=== PATIENT | female | born 1950 | race Caucasian/White ===

== ENCOUNTER 2017-07-12 21:16 | Inpatient (IN) | payer OTHER ==
[~2017-07-12] VITALS: Ht 165.1 cm; Wt 154.5 kg
[~2017-07-12 21:16] MED LIST: ASPI-496 PO; ATOR40TA78 PO; BUDE10.22 INH; CEFD300C37 PO; CEPH-376 PO; CHOL500050 PO; DOXY100T PO; FURO-93 PO; GABA300C10 PO; HYDR12.58 PO; HYDR25TA6 PO; IPRA3AMP NPPB; LISI-170 PO; LORA10TA62 PO; MAGN64TA9 PO; METF500T4 PO; METO25TA35 PO; MULT-224 PO; OXYC10TA6 PO; PARO20TA4 PO; POTA20TA6 PO; PRED5TAB PO; SULF1TAB24 PO; TICA90TA PO; TIOT18CA INH
[2017-07-12] MEDS ORDERED: ALBUTEROL/IPRATROPIUM 2.5MG/0.5MG, 3 ML ONE (21:27)
[2017-07-12] MEDS ORDERED: SODIUM CHLORIDE FLUSH 10ML SYR IVF ONE (21:30)
[2017-07-12] MEDS ORDERED: methylPREDNISolone SOD SUCC 125 MG/2 ML IVP ONE (21:30)
[2017-07-12] MEDS ORDERED: ALBUTEROL/IPRATROPIUM 2.5MG/0.5MG, 3 ML NPPB ONE (21:30)
[2017-07-12] MEDS ORDERED: methylPREDNISolone SOD SUCC 125 MG/2 ML ONE (21:39)
[2017-07-12 22:16] LABS: BASOPHILS # (AUTO) 0.03 x10^3/uL (0-0.1); BASOPHILS % (AUTO) 0 % (0-1); EOSINOPHILS # (AUTO) 0.53 x10^3/uL (0-0.4); EOSINOPHILS % (AUTO) 5 % (1-7); LYMPHOCYTES % (AUTO) 21 % (22-44); MD NO; MEAN CORPUSCULAR HEMOGLOBIN 31.1 pg (27.0-34.8); MEAN CORPUSCULAR HGB CONC 32.7 g/dL (32.4-35.8); MEAN CORPUSCULAR VOLUME 94.9 fL (80-100); MONOCYTES # (AUTO) 0.51 x10^3/uL (0.2-0.8); MONOCYTES % (AUTO) 5 % (2-9); NEUTROPHILS # (AUTO) 7.38 x10^3/uL (1.8-6.8); NEUTROPHILS % (AUTO) 69 % (42-75); PLATELET COUNT 422 x10^3/uL (130-400); RED BLOOD COUNT 3.28 x10^6/uL (3.82-5.3); RED CELL DISTRIBUTION WIDTH 17.7 % (9.6-15.2)
[2017-07-12 22:26] LABS: ALANINE AMINOTRANSFERASE 15 U/L (12-78); ALBUMIN 3.3 g/dL (3.4-5.0); ANION GAP 9 mmol/L (5-15); CALCIUM 8.9 mg/dL (8.5-10.1); CHLORIDE 103 mmol/L (98-107); CREATININE 1.34 mg/dL (0.55-1.02)
[2017-07-12 22:30] LABS: ALKALINE PHOSPHATASE 81 U/L (45-117); BILIRUBIN,TOTAL 0.3 mg/dL (0.2-1.0); TOTAL PROTEIN 8.7 g/dL (6.4-8.2); TROPONIN I < 0.015 ng/mL (0.000-0.045)
[2017-07-12] MEDS ORDERED: LISI-167 PO (23:17)
[2017-07-12] MEDS ORDERED: BISACODYL 10 MG SUPP PR PRN (23:30)
[2017-07-12] MEDS ORDERED: ALBUTEROL/IPRATROPIUM 2.5MG/0.5MG, 3 ML NPPB PRN (23:30)
[2017-07-12] MEDS ORDERED: ACETAMINOPHEN 325 MG TABLET PO PRN (23:30)
[2017-07-12] MEDS ORDERED: ONDANSETRON 2MG/ML, 2ML IVPush PRN (23:30)
[2017-07-12] MEDS: INSULIN LISPRO 100 UNITS/ML, PEN SQ-INSULIN SCH (23:30)
[2017-07-12] MEDS ORDERED: hydrALAzine 20 MG/ML, 1ML IVPush PRN (23:30)
[2017-07-12] MEDS: ASPIRIN 81 MG TABLET EC PO SCH (23:30)
[2017-07-12] MEDS ORDERED: POLYETHYLENE GLYCOL 17 GM PACKET PO PRN (23:30)
[2017-07-12 23:54] LABS: FREE T4 (FREE THYROXINE) 1.11 ng/dL (0.76-1.46); THYROID STIMULATING HORMONE 2.19 mIU/L (0.358-3.740)
[2017-07-12 23:55] LABS: HEMOGLOBIN A1C 6.3 % (4.2-6.3)
[2017-07-13] MEDS ORDERED: MAGNESIUM SULFATE PMX 2GM/50ML 50 ML IV ONE
[2017-07-13] MEDS ORDERED: FUROSEMIDE 20 MG/2 ML IV ONE
[2017-07-13] MEDS: LORATADINE 10 MG TABLET PO SCH ×2 (00:30→10:07)
[2017-07-13 00:59] VITALS: BP 145/76
[2017-07-13] MEDS: GUAIFENESIN ER 600 MG TABLET PO SCH ×2 (01:47→17:02)
[2017-07-13] MEDS: METOPROLOL TARTRATE 25 MG TABLET PO SCH ×3 (01:47→20:44)
[2017-07-13] MEDS: GABAPENTIN 300 MG CAPSULE PO SCH ×2 (01:48→20:43)
[2017-07-13] MEDS: ATORVASTATIN 40 MG TABLET PO SCH ×2 (01:48→20:43)
[2017-07-13] MEDS: PAROXETINE 20 MG TABLET PO SCH ×2 (01:48→20:43)
[2017-07-13] MEDS: HEPARIN 5,000 UNITS/ML, 1ML SQ SCH ×3 (01:49→17:10)
[2017-07-13 03:12] LABS: MICROSCOPIC AUTO
[2017-07-13 03:13] LABS: CULTURE INDICATED? YES
[2017-07-13 05:03] LABS: BASOPHILS % (AUTO) 0 % (0-1); EOSINOPHILS # (AUTO) 0.04 x10^3/uL (0-0.4); EOSINOPHILS % (AUTO) 0 % (1-7); LYMPHOCYTES # (AUTO) 0.95 x10^3/uL (1-3.4); LYMPHOCYTES % (AUTO) 9 % (22-44); MD NO; MEAN CORPUSCULAR HEMOGLOBIN 31.8 pg (27.0-34.8); MEAN CORPUSCULAR HGB CONC 33.4 g/dL (32.4-35.8); MEAN CORPUSCULAR VOLUME 95.1 fL (80-100); MEAN PLATELET VOLUME 7.1 fL (7.4-10.4); MONOCYTES # (AUTO) 0.03 x10^3/uL (0.2-0.8); MONOCYTES % (AUTO) 0 % (2-9); NEUTROPHILS # (AUTO) 9.66 x10^3/uL (1.8-6.8); NEUTROPHILS % (AUTO) 90 % (42-75); PLATELET COUNT 403 x10^3/uL (130-400); RED BLOOD COUNT 3.26 x10^6/uL (3.82-5.3)
[2017-07-13 05:17] LABS: ALBUMIN 3.2 g/dL (3.4-5.0); ANION GAP 9 mmol/L (5-15); CHLORIDE 103 mmol/L (98-107)
[2017-07-13 05:22] LABS: ALANINE AMINOTRANSFERASE 16 U/L (12-78); ALKALINE PHOSPHATASE 84 U/L (45-117); BILIRUBIN,TOTAL 0.3 mg/dL (0.2-1.0); CHOL/HDL RATIO 2.1; CHOLESTEROL, TOTAL 115 mg/dL (140-239); CREATININE 1.34 mg/dL (0.55-1.02); HDL CHOL % 47 % (28-40); HDL CHOLESTEROL (DIRECT) 54 mg/dL (40-60); LDL CHOLESTEROL,CALCULATED 48 mg/dL (54-169); LDL/HDL RATIO 0.9 (0.5-3.0); TOTAL PROTEIN 8.8 g/dL (6.4-8.2); TRIGLYCERIDES 63 mg/dL (50-200); TROPONIN I < 0.015 ng/mL (0.000-0.045); VLDL CHOLESTEROL 13 mg/dL (0-25)
[2017-07-13] MEDS: ALBUTEROL/IPRATROPIUM 2.5MG/0.5MG, 3 ML NPPB SCH ×4 (06:48→20:02)
[2017-07-13] MEDS: INSULIN LISPRO 100 UNITS/ML, PEN SQ-INSULIN SCH ×4 (07:00→20:55)
[2017-07-13] MEDS ORDERED: REGADENOSON 0.4 MG/5 ML SYRINGE ONE (07:41)
[2017-07-13 07:54] VITALS: BP 163/84
[2017-07-13] MEDS: SENNA/DOCUSATE TABLET PO SCH (07:54)
[2017-07-13] MEDS: TEMPLATE NON-FORMULARY MED. (Tiotropium Bromide** (Spiriva**) 18 MCG) INH SCH ×2 (09:00→12:33)
[2017-07-13] MEDS: TEMPLATE NON-FORMULARY MED. (Budesonide/Formoterol Fumarate (Symbicort 80-4.5 Mcg Inhaler) INH SCH ×2 (09:00→12:32)
[2017-07-13 10:05] VITALS: BP 164/91
[2017-07-13] MEDS: CLOPIDOGREL 75 MG TABLET PO SCH (10:07)
[2017-07-13] MEDS: FUROSEMIDE 20 MG/2 ML IV SCH (10:07)
[2017-07-13] MEDS: LISINOPRIL 10 MG TABLET PO SCH (10:07)
[2017-07-13 10:09] LABS: TROPONIN I < 0.015 ng/mL (0.000-0.045)
[2017-07-13 12:30] VITALS: BP 151/84
[2017-07-13 13:01] VITALS: BP 147/81
[2017-07-13 20:38] VITALS: BP 145/74
[2017-07-13] MEDS: ASPIRIN 81 MG TABLET EC PO SCH (20:43)
[2017-07-14 01:45] VITALS: BP 156/64
[2017-07-14] MEDS: HEPARIN 5,000 UNITS/ML, 1ML SQ SCH ×3 (02:02→17:16)
[2017-07-14] MEDS: GUAIFENESIN ER 600 MG TABLET PO SCH ×2 (06:12→17:16)
[2017-07-14] MEDS: INSULIN LISPRO 100 UNITS/ML, PEN SQ-INSULIN SCH ×4 (07:00→20:45)
[2017-07-14] MEDS: ALBUTEROL/IPRATROPIUM 2.5MG/0.5MG, 3 ML NPPB SCH ×4 (07:00→20:15)
[2017-07-14 07:17] VITALS: BP 168/73
[2017-07-14] MEDS: SENNA/DOCUSATE TABLET PO SCH (09:00)
[2017-07-14] MEDS: FUROSEMIDE 20 MG/2 ML IV SCH (09:35)
[2017-07-14] MEDS: CLOPIDOGREL 75 MG TABLET PO SCH (09:37)
[2017-07-14] MEDS: METOPROLOL TARTRATE 25 MG TABLET PO SCH ×2 (09:38→20:42)
[2017-07-14] MEDS: LORATADINE 10 MG TABLET PO SCH (09:39)
[2017-07-14] MEDS: LISINOPRIL 10 MG TABLET PO SCH (09:39)
[2017-07-14] MEDS: TEMPLATE NON-FORMULARY MED. (Tiotropium Bromide** (Spiriva**) 18 MCG) INH SCH (09:44)
[2017-07-14] MEDS: TEMPLATE NON-FORMULARY MED. (Budesonide/Formoterol Fumarate (Symbicort 80-4.5 Mcg Inhaler) INH SCH (09:44)
[2017-07-14 13:22] VITALS: BP 108/56
[2017-07-14 19:05] VITALS: BP 113/67
[2017-07-14] MEDS: ATORVASTATIN 40 MG TABLET PO SCH (20:41)
[2017-07-14] MEDS: ASPIRIN 81 MG TABLET EC PO SCH (20:42)
[2017-07-14] MEDS: PAROXETINE 20 MG TABLET PO SCH (20:42)
[2017-07-15] MEDS: HEPARIN 5,000 UNITS/ML, 1ML SQ SCH ×2 (01:43→09:23)
[2017-07-15 02:23] VITALS: BP 163/69
[2017-07-15] MEDS: GUAIFENESIN ER 600 MG TABLET PO SCH (06:26)
[2017-07-15] MEDS: INSULIN LISPRO 100 UNITS/ML, PEN SQ-INSULIN SCH ×2 (07:00→11:00)
[2017-07-15 07:43] VITALS: BP 139/79
[2017-07-15] MEDS: ALBUTEROL/IPRATROPIUM 2.5MG/0.5MG, 3 ML NPPB SCH ×2 (08:00→09:44)
[2017-07-15] MEDS: METOPROLOL TARTRATE 25 MG TABLET PO SCH (09:00)
[2017-07-15] MEDS: SENNA/DOCUSATE TABLET PO SCH (09:00)
[2017-07-15] MEDS: LORATADINE 10 MG TABLET PO SCH (09:20)
[2017-07-15] MEDS: FUROSEMIDE 20 MG/2 ML IV SCH (09:20)
[2017-07-15] MEDS: LISINOPRIL 10 MG TABLET PO SCH (09:21)
[2017-07-15] MEDS: CLOPIDOGREL 75 MG TABLET PO SCH (09:21)
[2017-07-15] MEDS: TEMPLATE NON-FORMULARY MED. (Tiotropium Bromide** (Spiriva**) 18 MCG) INH SCH (09:33)
[2017-07-15] MEDS: TEMPLATE NON-FORMULARY MED. (Budesonide/Formoterol Fumarate (Symbicort 80-4.5 Mcg Inhaler) INH SCH (09:33)
[2017-07-15 12:48] VITALS: BP 153/72
[2017-07-15] MEDS ORDERED: METOPROLOL TARTRATE 25 MG TABLET PO SCH (21:00)
== END 2017-07-15 16:00 | disposition home or self-care (01) | DRG 291 ==
LOC: ED 22:51 → EDIP 22:57 → 4WST 23:56 → 5SO 07-13 01:08 → DCLOUNGE 07-15 15:45
PROVIDERS: ADMIT Internal Medicine; ATTEND Internal Medicine
PROC: 5A09357 Assistance with Respiratory Ventilation, Less than 24 Consecutive Hours, Continuous Positive Airway Pressure (ICD-10-PCS; principal; 2017-07-14)
DX: I13.0 Hypertensive heart and chronic kidney disease with heart failure and stage 1 through stage 4 chronic kidney disease, or unspecified chronic kidney disease (principal); J96.21 Acute and chronic respiratory failure with hypoxia; E44.0 Moderate protein-calorie malnutrition; E11.22 Type 2 diabetes mellitus with diabetic chronic kidney disease; F17.210 Nicotine dependence, cigarettes, uncomplicated; D50.9 Iron deficiency anemia, unspecified; I50.33 Acute on chronic diastolic (congestive) heart failure; E87.2 Acidosis; Z68.43 Body mass index [BMI] 50.0-59.9, adult; J44.1 Chronic obstructive pulmonary disease with (acute) exacerbation; J98.11 Atelectasis; E66.01 Morbid (severe) obesity due to excess calories; E78.5 Hyperlipidemia, unspecified; I87.2 Venous insufficiency (chronic) (peripheral); L30.9 Dermatitis, unspecified; N18.3 Chronic kidney disease, stage 3 (moderate); G47.33 Obstructive sleep apnea (adult) (pediatric); I25.10 Atherosclerotic heart disease of native coronary artery without angina pectoris; J40 Bronchitis, not specified as acute or chronic; I25.2 Old myocardial infarction; Z95.5 Presence of coronary angioplasty implant and graft; Z90.49 Acquired absence of other specified parts of digestive tract
CPT/HCPCS: 36415; 36600; 71045; 71046; 78452; 80053; 80061; 81001; 82803; 82962; 83036; 83605; 83735; 84145; 84439; 84443; 84484; 85025; 87040; 87086; 87205; 93005; 93017; 94640; 96374; J1644; J2785; J7620; A9502; C9898; J1815; J1940; J2930; J3475

== ENCOUNTER → 2017-07-16 | Outpatient (CLI) | payer OTHER ==
[~2017-07-16] MED LIST changes: +LISI-167 PO; -MAGN64TA9 PO; +MAGNESIUM DR64 MG PO
== END | disposition home or self-care (01) ==
LOC: WOUND 08:00
PROVIDERS: ATTEND Podiatrist Foot & Ankle Surgery
DX: I87.331 Chronic venous hypertension (idiopathic) with ulcer and inflammation of right lower extremity (principal); E11.621 Type 2 diabetes mellitus with foot ulcer; L97.511 Non-pressure chronic ulcer of other part of right foot limited to breakdown of skin; L97.521 Non-pressure chronic ulcer of other part of left foot limited to breakdown of skin; E11.40 Type 2 diabetes mellitus with diabetic neuropathy, unspecified; I25.2 Old myocardial infarction; J44.9 Chronic obstructive pulmonary disease, unspecified; F32.9 Major depressive disorder, single episode, unspecified; Z87.891 Personal history of nicotine dependence; Z90.49 Acquired absence of other specified parts of digestive tract; Z89.422 Acquired absence of other left toe(s)
CPT/HCPCS: 29581; 97597; G0463; WOU0463

== ENCOUNTER → 2017-07-23 | Outpatient (CLI) | payer OTHER | END | disposition home or self-care (01) | LOC: WOUND 09:18 | PROVIDERS: ATTEND Podiatrist Foot & Ankle Surgery | DX: E11.621 Type 2 diabetes mellitus with foot ulcer (principal); L97.511 Non-pressure chronic ulcer of other part of right foot limited to breakdown of skin; E11.40 Type 2 diabetes mellitus with diabetic neuropathy, unspecified; J44.9 Chronic obstructive pulmonary disease, unspecified; F32.9 Major depressive disorder, single episode, unspecified; I25.2 Old myocardial infarction; I25.10 Atherosclerotic heart disease of native coronary artery without angina pectoris; E11.22 Type 2 diabetes mellitus with diabetic chronic kidney disease; I13.0 Hypertensive heart and chronic kidney disease with heart failure and stage 1 through stage 4 chronic kidney disease, or unspecified chronic kidney disease; N18.3 Chronic kidney disease, stage 3 (moderate); I50.33 Acute on chronic diastolic (congestive) heart failure; J44.1 Chronic obstructive pulmonary disease with (acute) exacerbation; E78.5 Hyperlipidemia, unspecified; E66.01 Morbid (severe) obesity due to excess calories; I87.2 Venous insufficiency (chronic) (peripheral); F17.210 Nicotine dependence, cigarettes, uncomplicated; Z89.422 Acquired absence of other left toe(s); Z90.49 Acquired absence of other specified parts of digestive tract; Z68.43 Body mass index [BMI] 50.0-59.9, adult | CPT/HCPCS: 29581; 97597 ==

== ENCOUNTER 2017-08-15 20:37 | Inpatient (IN) | payer OTHER ==
[~2017-08-15] VITALS: Ht 165.1 cm; Wt 153.9 kg
[2017-08-15] MEDS ORDERED: ALBUTEROL SULFATE 2.5 MG/3 ML ONE (21:23)
[2017-08-15] MEDS ORDERED: SODIUM CHLORIDE FLUSH 10ML SYR IVF ONE (21:30)
[2017-08-15 21:52] LABS: BASOPHILS # (AUTO) 0.05 x10^3/uL (0-0.1); BASOPHILS % (AUTO) 1 % (0-1); EOSINOPHILS # (AUTO) 0.55 x10^3/uL (0-0.4); EOSINOPHILS % (AUTO) 6 % (1-7); LYMPHOCYTES # (AUTO) 1.99 x10^3/uL (1-3.4); LYMPHOCYTES % (AUTO) 21 % (22-44); MD NO; MEAN CORPUSCULAR HEMOGLOBIN 31.1 pg (27.0-34.8); MEAN CORPUSCULAR HGB CONC 32.8 g/dL (32.4-35.8); MEAN PLATELET VOLUME 7.1 fL (7.4-10.4); MONOCYTES # (AUTO) 0.42 x10^3/uL (0.2-0.8); MONOCYTES % (AUTO) 4 % (2-9); NEUTROPHILS # (AUTO) 6.58 x10^3/uL (1.8-6.8); NEUTROPHILS % (AUTO) 69 % (42-75); PLATELET COUNT 392 x10^3/uL (130-400); RED BLOOD COUNT 3.25 x10^6/uL (3.82-5.3); RED CELL DISTRIBUTION WIDTH 16.2 % (9.6-15.2)
[2017-08-15 22:04] LABS: ALANINE AMINOTRANSFERASE 17 U/L (12-78); ANION GAP 6 mmol/L (5-15); CALCIUM 9.1 mg/dL (8.5-10.1); CHLORIDE 105 mmol/L (98-107); CREATININE 1.37 mg/dL (0.55-1.02)
[2017-08-15 22:09] LABS: ALKALINE PHOSPHATASE 79 U/L (45-117); TOTAL PROTEIN 8.1 g/dL (6.4-8.2); TROPONIN I < 0.015 ng/mL (0.000-0.045)
[2017-08-15 22:10] LABS: BILIRUBIN,TOTAL 0.2 mg/dL (0.2-1.0)
[2017-08-15] MEDS ORDERED: POLYETHYLENE GLYCOL 17 GM PACKET PO PRN (23:30)
[2017-08-15] MEDS ORDERED: PROMETHAZINE 25 MG/ML, 1ML IM PRN (23:30)
[2017-08-15] MEDS ORDERED: morphine SULFATE 10 MG/ML, 1ML IVPush PRN (23:30)
[2017-08-15] MEDS ORDERED: ONDANSETRON ODT 4 MG PO PRN (23:30)
[2017-08-15] MEDS ORDERED: SODIUM CHLORIDE FLUSH 10ML SYR IVF PRN (23:30)
[2017-08-15] MEDS ORDERED: OXYcodone IR 5MG TABLET PO PRN (23:30)
[2017-08-15] MEDS ORDERED: ONDANSETRON 2MG/ML, 2ML IVPush PRN (23:30)
[2017-08-15] MEDS ORDERED: hydrALAzine 20 MG/ML, 1ML IVPush PRN (23:30)
[2017-08-15] MEDS ORDERED: DOCUSATE 100 MG CAPSULE PO PRN (23:30)
[2017-08-15] MEDS ORDERED: ACETAMINOPHEN 325 MG TABLET PO PRN (23:30)
[2017-08-15] MEDS ORDERED: BISACODYL 10 MG SUPP PR PRN (23:30)
[2017-08-15 23:59] LABS: HEMOGLOBIN A1C 6.4 % (4.2-6.3)
[2017-08-16] MEDS ORDERED: ALBUTEROL/IPRATROPIUM 2.5MG/0.5MG, 3 ML NPPB PRN
[2017-08-16 00:02] LABS: FREE T4 (FREE THYROXINE) 1.17 ng/dL (0.76-1.46); THYROID STIMULATING HORMONE 1.26 mIU/L (0.358-3.740)
[2017-08-16] MEDS: HEPARIN 5,000 UNITS/ML, 1ML SQ SCH ×4 (01:15→21:17)
[2017-08-16] MEDS: methylPREDNISolone SOD SUCC 125 MG/2 ML IVPush SCH ×4 (01:15→19:37)
[2017-08-16] MEDS: NICOTINE 14MG/24 HR PATCH.TD24 TD SCH (01:15)
[2017-08-16] MEDS: GABAPENTIN 300 MG CAPSULE PO SCH ×2 (01:16→21:15)
[2017-08-16] MEDS: ASPIRIN 81 MG TABLET EC PO SCH ×2 (01:16→21:15)
[2017-08-16] MEDS: DOXYCYCLINE 100MG TABLET PO SCH ×3 (01:16→21:16)
[2017-08-16] MEDS: ATORVASTATIN 40 MG TABLET PO SCH ×2 (01:16→21:15)
[2017-08-16] MEDS: PAROXETINE 20 MG TABLET PO SCH ×2 (01:16→21:16)
[2017-08-16 02:00] VITALS: BP 147/75
[2017-08-16 02:32] VITALS: BP 147/75
[2017-08-16 03:43] VITALS: BP 164/77
[2017-08-16] MEDS ORDERED: CLOP75TA PO (04:26)
[2017-08-16] MEDS ORDERED: METO25TA4 PO (04:26)
[2017-08-16 05:25] LABS: BASOPHILS # (AUTO) 0.01 x10^3/uL (0-0.1); BASOPHILS % (AUTO) 0 % (0-1); EOSINOPHILS # (AUTO) 0.11 x10^3/uL (0-0.4); EOSINOPHILS % (AUTO) 1 % (1-7); LYMPHOCYTES # (AUTO) 0.87 x10^3/uL (1-3.4); LYMPHOCYTES % (AUTO) 9 % (22-44); MD NO; MEAN CORPUSCULAR HEMOGLOBIN 31.4 pg (27.0-34.8); MEAN PLATELET VOLUME 6.8 fL (7.4-10.4); MONOCYTES # (AUTO) 0.05 x10^3/uL (0.2-0.8); MONOCYTES % (AUTO) 1 % (2-9); NEUTROPHILS # (AUTO) 9.04 x10^3/uL (1.8-6.8); NEUTROPHILS % (AUTO) 90 % (42-75); PLATELET COUNT 396 x10^3/uL (130-400); RED BLOOD COUNT 3.37 x10^6/uL (3.82-5.3); RED CELL DISTRIBUTION WIDTH 16.2 % (9.6-15.2)
[2017-08-16 05:39] LABS: CHLORIDE 106 mmol/L (98-107)
[2017-08-16 05:47] LABS: ALANINE AMINOTRANSFERASE 17 U/L (12-78); ALKALINE PHOSPHATASE 83 U/L (45-117); ANION GAP 5 mmol/L (5-15); BILIRUBIN,TOTAL 0.2 mg/dL (0.2-1.0); CALCIUM 8.8 mg/dL (8.5-10.1); CREATININE 1.24 mg/dL (0.55-1.02); TOTAL PROTEIN 8.3 g/dL (6.4-8.2)
[2017-08-16] MEDS: ALBUTEROL/IPRATROPIUM 2.5MG/0.5MG, 3 ML NPPB SCH ×4 (07:00→20:35)
[2017-08-16] MEDS: INSULIN LISPRO 100 UNITS/ML, PEN SQ-INSULIN SCH ×4 (07:00→21:16)
[2017-08-16 07:03] VITALS: BP 155/75
[2017-08-16] MEDS: FLUTICASONE/VILANTEROL 100-25MCG/INH INH SCH (09:00)
[2017-08-16] MEDS: LOSARTAN 50MG TABLET PO SCH (09:00)
[2017-08-16] MEDS: LORATADINE 10 MG TABLET PO SCH (09:00)
[2017-08-16] MEDS ORDERED: IPRATROPIUM 0.5 MG/2.5 ML INHA HHN SCH (09:00)
[2017-08-16] MEDS: NYSTATIN TOPICAL POWDER 15GM TP SCH ×2 (12:00→21:17)
[2017-08-16 13:43] VITALS: BP 139/84
[2017-08-16 14:15] LABS: % IRON SATURATION 10 % (20-55); IRON LEVEL 28 mcg/dL (50-170); TOTAL IRON BINDING CAPACITY 294 mcg/dL (250-450)
[2017-08-16 16:47] LABS: MICROSCOPIC AUTO
[2017-08-16 16:48] LABS: CULTURE INDICATED? NO
[2017-08-16] MEDS: FERROUS SULFATE 325 MG TABLET PO SCH (16:56)
[2017-08-16 20:08] VITALS: BP 149/73
[2017-08-16] MEDS: HYDROCHLOROTHIAZIDE 12.5 MG CAPSULE PO SCH (21:15)
[2017-08-17] MEDS: methylPREDNISolone SOD SUCC 125 MG/2 ML IVPush SCH ×2 (01:33→06:04)
[2017-08-17] MEDS: NICOTINE 14MG/24 HR PATCH.TD24 TD SCH (01:34)
[2017-08-17 03:19] VITALS: BP 140/75
[2017-08-17 04:38] LABS: BASOPHILS # (AUTO) 0.01 x10^3/uL (0-0.1); BASOPHILS % (AUTO) 0 % (0-1); EOSINOPHILS % (AUTO) 0 % (1-7); LYMPHOCYTES # (AUTO) 1.28 x10^3/uL (1-3.4); LYMPHOCYTES % (AUTO) 12 % (22-44); MD NO; MEAN CORPUSCULAR HEMOGLOBIN 31.5 pg (27.0-34.8); MEAN CORPUSCULAR HGB CONC 33.3 g/dL (32.4-35.8); MEAN CORPUSCULAR VOLUME 94.6 fL (80-100); MONOCYTES # (AUTO) 0.28 x10^3/uL (0.2-0.8); MONOCYTES % (AUTO) 3 % (2-9); NEUTROPHILS # (AUTO) 9.38 x10^3/uL (1.8-6.8); NEUTROPHILS % (AUTO) 86 % (42-75); PLATELET COUNT 365 x10^3/uL (130-400); RED BLOOD COUNT 3.28 x10^6/uL (3.82-5.3); RED CELL DISTRIBUTION WIDTH 15.9 % (9.6-15.2)
[2017-08-17 04:48] LABS: ALBUMIN 2.9 g/dL (3.4-5.0); ANION GAP 6 mmol/L (5-15); CALCIUM 8.9 mg/dL (8.5-10.1); CHLORIDE 103 mmol/L (98-107)
[2017-08-17 04:52] LABS: ALANINE AMINOTRANSFERASE 17 U/L (12-78); ALKALINE PHOSPHATASE 73 U/L (45-117); BILIRUBIN,TOTAL 0.2 mg/dL (0.2-1.0); CREATININE 1.14 mg/dL (0.55-1.02); TOTAL PROTEIN 7.9 g/dL (6.4-8.2)
[2017-08-17] MEDS: HEPARIN 5,000 UNITS/ML, 1ML SQ SCH ×3 (06:04→20:39)
[2017-08-17 08:13] VITALS: BP 178/80
[2017-08-17] MEDS: INSULIN LISPRO 100 UNITS/ML, PEN SQ-INSULIN SCH ×4 (08:15→20:51)
[2017-08-17] MEDS: FLUTICASONE/VILANTEROL 100-25MCG/INH INH SCH (08:15)
[2017-08-17] MEDS: FERROUS SULFATE 325 MG TABLET PO SCH (08:15)
[2017-08-17] MEDS: NYSTATIN TOPICAL POWDER 15GM TP SCH ×2 (08:15→20:39)
[2017-08-17] MEDS: DOXYCYCLINE 100MG TABLET PO SCH (08:15)
[2017-08-17] MEDS: LORATADINE 10 MG TABLET PO SCH (08:15)
[2017-08-17] MEDS: LOSARTAN 50MG TABLET PO SCH (08:15)
[2017-08-17] MEDS: ALBUTEROL/IPRATROPIUM 2.5MG/0.5MG, 3 ML NPPB SCH ×4 (08:40→20:00)
[2017-08-17] MEDS: IRON SUCROSE COMPLEX 100MG/5ML IV SCH (12:05)
[2017-08-17 13:41] VITALS: BP 162/80
[2017-08-17] MEDS: methylPREDNISolone SOD SUCC 40 MG/ML IVPush SCH (17:07)
[2017-08-17 20:00] VITALS: BP 154/65
[2017-08-17] MEDS: ASPIRIN 81 MG TABLET EC PO SCH (20:38)
[2017-08-17] MEDS: ATORVASTATIN 40 MG TABLET PO SCH (20:39)
[2017-08-17] MEDS: HYDROCHLOROTHIAZIDE 12.5 MG CAPSULE PO SCH (20:39)
[2017-08-17] MEDS: PAROXETINE 20 MG TABLET PO SCH (20:39)
[2017-08-17] MEDS: GABAPENTIN 300 MG CAPSULE PO SCH (20:39)
[2017-08-18] MEDS: NICOTINE 14MG/24 HR PATCH.TD24 TD SCH (01:00)
[2017-08-18 01:38] VITALS: BP 184/83
[2017-08-18] MEDS: HEPARIN 5,000 UNITS/ML, 1ML SQ SCH ×2 (05:18→15:13)
[2017-08-18 06:30] VITALS: BP 128/77
[2017-08-18] MEDS: INSULIN LISPRO 100 UNITS/ML, PEN SQ-INSULIN SCH ×3 (07:53→16:52)
[2017-08-18] MEDS: LORATADINE 10 MG TABLET PO SCH (07:54)
[2017-08-18] MEDS: FLUTICASONE/VILANTEROL 100-25MCG/INH INH SCH (07:54)
[2017-08-18] MEDS: IRON SUCROSE COMPLEX 100MG/5ML IV SCH (07:54)
[2017-08-18] MEDS: LOSARTAN 50MG TABLET PO SCH (07:54)
[2017-08-18] MEDS: NYSTATIN TOPICAL POWDER 15GM TP SCH (07:54)
[2017-08-18] MEDS: methylPREDNISolone SOD SUCC 40 MG/ML IVPush SCH ×2 (07:54→18:12)
[2017-08-18] MEDS: ALBUTEROL/IPRATROPIUM 2.5MG/0.5MG, 3 ML NPPB SCH ×3 (08:03→15:00)
[2017-08-18] MEDS ORDERED: METH4TAB2 PO (10:13)
[2017-08-18 13:55] VITALS: BP 158/78
== END 2017-08-18 18:23 | disposition home or self-care (01) | DRG 189 ==
LOC: ED 21:37 → EDIP 23:02 → 3NW 23:51 → 4WST 08-16 00:13
PROVIDERS: ADMIT Internal Medicine; ATTEND Internal Medicine
PROC: 5A09357 Assistance with Respiratory Ventilation, Less than 24 Consecutive Hours, Continuous Positive Airway Pressure (ICD-10-PCS; principal; 2017-08-16)
DX: J96.21 Acute and chronic respiratory failure with hypoxia (principal); E11.22 Type 2 diabetes mellitus with diabetic chronic kidney disease; I13.0 Hypertensive heart and chronic kidney disease with heart failure and stage 1 through stage 4 chronic kidney disease, or unspecified chronic kidney disease; E66.01 Morbid (severe) obesity due to excess calories; I50.32 Chronic diastolic (congestive) heart failure; F17.200 Nicotine dependence, unspecified, uncomplicated; B37.9 Candidiasis, unspecified; J44.1 Chronic obstructive pulmonary disease with (acute) exacerbation; Z68.43 Body mass index [BMI] 50.0-59.9, adult; D50.9 Iron deficiency anemia, unspecified; G47.33 Obstructive sleep apnea (adult) (pediatric); Z95.5 Presence of coronary angioplasty implant and graft; J96.22 Acute and chronic respiratory failure with hypercapnia; I25.10 Atherosclerotic heart disease of native coronary artery without angina pectoris; Z71.6 Tobacco abuse counseling; E78.5 Hyperlipidemia, unspecified; I25.2 Old myocardial infarction; I87.2 Venous insufficiency (chronic) (peripheral); I89.0 Lymphedema, not elsewhere classified; N18.3 Chronic kidney disease, stage 3 (moderate); Z79.02 Long term (current) use of antithrombotics/antiplatelets; Z79.82 Long term (current) use of aspirin; Z71.3 Dietary counseling and surveillance
CPT/HCPCS: 36415; 71045; 80053; 81001; 82962; 83036; 83540; 83550; 83735; 83880; 84439; 84443; 84484; 85025; 87070; 87205; 93005; 93970; 94640; 94660; 99285; J1644; J1756; J7620; J0360; J1815; J2920; J2930; J7512

== ENCOUNTER 2018-05-24 13:18 | Emergency (ER) | payer MEDICARE, OTHER ==
[~2018-05-24] VITALS: Ht 165.1 cm; Wt 142.0 kg
[~2018-05-24 13:18] MED LIST changes: +CLOP75TA PO; -HYDR12.58 PO; +HYDROCHLOROTH12.5 MG PO; -IPRA3AMP NPPB; +IPRA3AMP30 NPPB; +METF500T17 PO; -METF500T4 PO; +METH4TAB2 PO; +METO25TA4 PO; -MULT-224 PO; +MULT-642 PO
[2018-05-24 13:21] VITALS: BP 126/57
[2018-05-24] MEDS ORDERED: LIDOCAINE-MPF 1%, 5ML ONE (13:42)
[2018-05-24] MEDS ORDERED: DIPH,PERTUSS(ACELL),TET VAC/PF 0.5 ML IM-VACC ONE ×2 (13:43→14:00)
[2018-05-24] MEDS ORDERED: LIDOCAINE 1%-EPI 1:100K, 20ML SQ ONE (14:00)
== END 2018-05-24 15:32 | disposition home or self-care (01) ==
LOC: ED 15:30
DX: S91.115A Laceration without foreign body of left lesser toe(s) without damage to nail, initial encounter (principal); I25.2 Old myocardial infarction; E78.5 Hyperlipidemia, unspecified; E11.9 Type 2 diabetes mellitus without complications; I25.10 Atherosclerotic heart disease of native coronary artery without angina pectoris; I11.0 Hypertensive heart disease with heart failure; I50.9 Heart failure, unspecified; J44.9 Chronic obstructive pulmonary disease, unspecified; Z90.49 Acquired absence of other specified parts of digestive tract; F17.200 Nicotine dependence, unspecified, uncomplicated; X58.XXXA Exposure to other specified factors, initial encounter; Y93.9 Activity, unspecified; Y92.89 Other specified places as the place of occurrence of the external cause; Y99.8 Other external cause status
CPT/HCPCS: 12001; 90471; 90715

== ENCOUNTER 2018-09-16 08:04 | Outpatient (CLI) | payer MEDICARE | END 2018-09-16 23:59 | disposition home or self-care (01) | LOC: CVU 08:04 | PROVIDERS: ATTEND Internal Medicine Cardiovascular Disease | DX: I08.3 Combined rheumatic disorders of mitral, aortic and tricuspid valves (principal); I25.10 Atherosclerotic heart disease of native coronary artery without angina pectoris; E78.5 Hyperlipidemia, unspecified; E11.9 Type 2 diabetes mellitus without complications; I10 Essential (primary) hypertension; F17.210 Nicotine dependence, cigarettes, uncomplicated | CPT/HCPCS: 93306 ==

== ENCOUNTER → 2019-08-18 | Outpatient (CLI) | payer MEDICARE ==
[~2019-08-18] MED LIST changes: +GUAI600T31 PO; +PRED20TA PO
== END | disposition home or self-care (01) ==
LOC: CFH 09:35
PROVIDERS: ATTEND Registered Nurse
DX: Z12.2 Encounter for screening for malignant neoplasm of respiratory organs (principal); J84.10 Pulmonary fibrosis, unspecified; F17.210 Nicotine dependence, cigarettes, uncomplicated
CPT/HCPCS: G0297

== ENCOUNTER → 2020-09-26 | Outpatient (CLI) | payer MEDICARE ==
[~2020-09-26] MED LIST changes: +LORA-59 PO; -LORA10TA62 PO; +SULF-23 PO; -SULF1TAB24 PO
== END | disposition home or self-care (01) ==
LOC: CFH 09:15 → EDSTATUS 09:45
PROVIDERS: ATTEND Registered Nurse
DX: Z12.2 Encounter for screening for malignant neoplasm of respiratory organs (principal); F17.210 Nicotine dependence, cigarettes, uncomplicated; Z90.49 Acquired absence of other specified parts of digestive tract
CPT/HCPCS: 71271